=== PATIENT | male | born 1995 | race Caucasian/White ===

== ENCOUNTER 2021-06-10 23:56 | Emergency (ER) | payer OTHER, BC, SELFPAY ==
[2021-06-10 23:57] VITALS: BP 96/69; PULSE 67; RESP 16; TEMP 36; O2SAT 98; BMI 21.9
--- NOTE | 2021-06-11 00:12 | RAD_ITS ---
STUDY: X-RAY - RIGHT FOOT CLINICAL: Male, 26 years old. trauma TECHNIQUE: 3 view(s) of the foot. COMPARISON: None. FINDINGS: Normal talus, calcaneus, and tarsal bones. Normal visualized subtalar, talonavicular, calcaneocuboid, tarsal and tarsometatarsal articulations. Normal metatarsi. Normal metatarsophalangeal joint of the great toe. Normal tibial and fibular sesamoid bones. Normal interphalangeal joint of the great toe. Normal phalanges of the great toe. Normal second through fifth metatarsophalangeal joints. Normal interphalangeal joints and phalanges of the lesser toes. Soft tissue tissue swelling along the anterior foot. There is no demonstrated fracture. RAD/Foot min 3 Views IMPRESSION: Mild nonspecific soft tissue swelling otherwise normal x-ray examination of the foot. Electronically Signed: Reshma Quiroz MD at 1:34 EDT , Service support ,
--- NOTE | 2021-06-11 00:15 | EDS_ITS ---
HPI History of Present Illness Chief Complaint: Lower Extremity Injury Informant: patient Narrative Narrative: Patient had a large metal pipe rolled on top of his right foot. He has discomfort there. No other areas of pain. Worse with weightbearing better with rest and ice. PFSH PFSH Medical History no medical history Home Medications ibuprofen 800 mg PO Q8H PRN 06/11/21 [History Last Taken 06/10/21 23:45] Allergy/AdvReac Type Severity Reaction Status Date / Time No Known Allergies Allergy Verified 06/11/21 00:02 Surgical History no surgical history Social History Smoking Status: Current every day smoker tobacco type: e-cigarettes ROS ROS ED Musculoskeletal Musculoskeletal: Reports other Details: See history of present illness. ; Denies back pain or neck pain Integumentary Denies rash Neurologic Neurologic: Denies paresthesias or weakness Hematologic/Lymphatic Hematologic/Lymphatic: Denies easy bleeding or easy bruising EXAM Physical Exam Const Vital Signs: 06/10/21 23:57 06/11/21 02:00 Temperature 96.8 F L Temperature Source Temporal Pulse Rate 67 77 Respiratory Rate 16 16 Blood Pressure 96/69 129/74 H Blood Pressure Mean 78 Pulse Ox 98 99 Oxygen Delivery Method Room Air Positive well nourished General Appearance ED: NAD HEENT normocephalic and atraumatic Resp normal respiratory effort Extremity Extremity Narrative: There is mild erythema to the dorsum of the patient's right foot. Mild tenderness locally there. No swelling. No deformity. No tenderness at the ankle or Achilles or calcaneus. Achilles is intact by palpation and Barney test. There are no lacerations. Neuro oriented x3 and no sensory deficits noted Sensorium / Orientation: alert Psych mental status grossly normal Skin Rashes: no rashes MDM MDM MDM Narrative Medical decision making narrative: X-ray looked at by me and read by radiology shows no acute fracture. There is some soft tissue swelling. This should do well with [id number] nonsteroidals or Tylenol rest and ice. If it is still hurting in a couple weeks is not unreasonable to repeat the x- ray to look for occult fracture not seen on initial views. Radiography Diagnostic Testing: Radiology Impression Foot X-Ray 06/11/21 00:12 IMPRESSION: Mild nonspecific soft tissue swelling otherwise normal x-ray examination of the foot. Electronically Signed: Reshma Mischiu, MD at 1:34 EDT , Service support , Discharge Plan Triage Chief Complaint: Lower Extremity Injury ED Provider: Randall Robertson Dx/Rx/DC Orders Clinical Impression: Contusion of foot, right Instructions: ED Foot Contusion Prescriptions: No Action ibuprofen 800 mg Tablet 800 mg PO Q8H PRN (Reason: Pain) RF: 0 Primary Care Provider: Care Physician,No Primary Referrals: Care Physician,No Primary [Primary Care Provider] - Clinic,NOW [NON-STAFF] - 10-14 Days if not better Disposition Disposition: Home, Self Care Discharge Date/Time: 06/11/21 02:02
[2021-06-11 02:00] VITALS: BP 129/74; PULSE 77; RESP 16; O2SAT 99
== END 2021-06-11 02:02 | disposition home or self-care (01) ==
PROVIDERS: Emergency Provider Emergency Medicine
DX: S90.31XA Contusion of right foot, initial encounter (principal); W20.8XXA Other cause of strike by thrown, projected or falling object, initial encounter; Y93.9 Activity, unspecified; Y92.89 Other specified places as the place of occurrence of the external cause; Y99.0 Civilian activity done for income or pay; F17.210 Nicotine dependence, cigarettes, uncomplicated
CPT/HCPCS: 73630; 99282